=== PATIENT | female | born 1960 | race Caucasian/White ===

== ENCOUNTER → 2016-06-29 | Outpatient (CLI) | payer OTHER ==
[~2016-06-29] MED LIST: MELO7.5T5 PO; NXM/40 PO; SYN50 PO; TRAM-10 PO
[2016-06-29 09:56] LABS: BLOOD UREA NITROGEN 19 mg/dl (7-18); BUN/CREATININE RATIO 26.1 (10-20); CALCIUM 8.4 mg/dl (8.5-10.1); CARBON DIOXIDE 26 mmol/L (21-32); CHLORIDE 106 mmol/L (98-107); CREATININE 0.74 mg/dl (0.60-1.20); GLUCOSE 86 mg/dl (70-99); POTASSIUM 4.1 mmol/L (3.5-5.1); SODIUM 140 mmol/L (136-145)
== END | disposition home or self-care (01) ==
LOC: C.LAB 07:17
PROVIDERS: ATTEND Internal Medicine
DX: R63.5 Abnormal weight gain (principal); E03.9 Hypothyroidism, unspecified

== ENCOUNTER → 2017-03-02 | Outpatient (CLI) | payer OTHER ==
[2017-03-02 08:51] LABS: ALT/SGPT 20 U/L (12-78); BLOOD UREA NITROGEN 23 mg/dl (7-18); CALCIUM 9.1 mg/dl (8.5-10.1); CARBON DIOXIDE 25 mmol/L (21-32); CHLORIDE 104 mmol/L (98-107); CHOLESTEROL 181 mg/dl (0-200); CREATININE 0.73 mg/dl (0.60-1.20); GLUCOSE 95 mg/dl (70-99); POTASSIUM 4.1 mmol/L (3.5-5.1); SODIUM 138 mmol/L (136-145); TRIGLYCERIDES 81 mg/dl (0-150); VERY LOW DENSITY LIPOPROT CALC 16 mg/dl
[2017-03-02 08:53] LABS: ALB/GLOB RATIO 0.9 (0.9-2); ALKALINE PHOSPHATASE 73 U/L (45-117); AST/SGOT 18 U/L (15-37); CHOLESTEROL/HDL RATIO 3.1; HDL CHOLESTEROL 59 mg/dl; LDL CHOLESTEROL CALCULATED 106 mg/dl
== END | disposition home or self-care (01) ==
LOC: C.LAB 07:15
PROVIDERS: ATTEND Internal Medicine
DX: I10 Essential (primary) hypertension (principal); E03.9 Hypothyroidism, unspecified; Z11.59 Encounter for screening for other viral diseases; Z11.4 Encounter for screening for human immunodeficiency virus [HIV]

== ENCOUNTER → 2017-04-11 | Outpatient (CLI) | payer OTHER | END | disposition home or self-care (01) | LOC: C.PATHSPEC 17:24 | PROVIDERS: ATTEND Plastic Surgery | DX: L72.11 Pilar cyst (principal) ==

== ENCOUNTER → 2017-05-02 | Outpatient (CLI) | payer OTHER | END | disposition home or self-care (01) | LOC: C.PATHSPEC 17:32 | PROVIDERS: ATTEND Plastic Surgery | DX: L72.11 Pilar cyst (principal) ==

== ENCOUNTER → 2017-11-19 | Outpatient (CLI) | payer OTHER ==
--- NOTE | 2017-11-19 16:00 | ECHOCARDIOGRAM REPORT ---
*NOTICE TO RECEIVING CONSTITUTION PARTY AGENCY This information is strictly Confidential and protected under [place] law. [place] law prohibits you from making any further disclosure of this information unless further disclosure is expressly permitted by the written consent of the person to whom it pertains or is authorized by law. A general authorization for the release of medical or other information is not sufficient for this purpose. Hospital accepts no responsibility if the information is made available to any other person, INCLUDING THE PATIENT. Interpretation Summary * Name: JOSIAH KENDALL Study Date: 11/19/2017 12:56 PM BP: 160/82 mmHg * Patient Location: [facility] HR: 53 * : 1960 (M/d/yyyy) Gender: Female Height: 64 in * Age: 56 yrs Ethnicity: [place] Weight: 184 lb * Ordering Physician: Jayant Fonseca * Referring Physician: Jayant Fonseca * Performed By: Ela Gill RCS * * Reason For Study: Palpitations, VILLARREAL * BSA: 1.9 m2 * -- Conclusions -- * Normal LV chamber size and wall thickness. * Normal LV systolic function, EF 60-65%. * No segmental left ventricular wall motion abnormalities are noted. * Grade I diastolic dysfunction. * No significant valvular pathology. Procedure Details * A complete two-dimensional transthoracic echocardiogram was performed (2D, M-mode, Doppler and color flow Doppler). Left Ventricle * The left ventricle is normal in size. * There is normal left ventricular wall thickness. * Ejection Fraction = 55-60%. * Left ventricular systolic function is normal. * No segmental left ventricular wall motion abnormalities are noted. * The left ventricular wall motion is normal. Right Ventricle * The right ventricular cavity size is normal (basal dimension <4.2 cm in right ventricular apical 4-chamber view). * The right ventricular systolic function is normal as assessed by tricuspid annular plane systolic excursion (TAPSE) (normal >1.5 cm). Atria * The left atrial size is normal. * Right atrial size is normal. * No ASD detected; PFO is not assessed. Mitral Valve * The mitral valve is normal in structure and function. Tricuspid Valve * The tricuspid valve is normal in structure and function. Aortic Valve * The aortic valve is normal in structure and function. Pulmonic Valve * The pulmonary valve is not well seen, but the Doppler examination is normal without significant regurgitation or stenosis. Great Vessels * The aortic root and proximal ascending aorta are normal sized. Pericardium/Pleural * There is no pericardial effusion. Left Ventricular Diastolic Function * Grade I diastolic dysfunction, (abnormal relaxation pattern). MMode 2D Measurements and Calculations IVSd 1.0 cm IVSs 1.3 cm LVIDd 4.8 cm LVIDs 3.0 cm LVPWd 0.98 cm LVPWs 1.3 cm IVS/LVPW 1.0 FS 39.0 % EDV(Teich) 109.5 ml ESV(Teich) 33.6 ml EF(Teich) 69.3 % EDV(cubed) 113.2 ml ESV(cubed) 25.7 ml EF(cubed) 77.3 % % IVS thick 31.0 % % LVPW thick 28.6 % LV mass(C)d 169.6 grams LV mass(C)dI 89.9 grams/m\S\2 LV mass(C)s 118.9 grams LV mass(C)sI 63.0 grams/m\S\2 SV(Teich) 75.9 ml SI(Teich) 40.2 ml/m\S\2 SV(cubed) 87.5 ml SI(cubed) 46.3 ml/m\S\2 Ao root diam 3.3 cm Ao root area 8.6 cm\S\2 ACS 1.5 cm LA dimension 4.0 cm asc Aorta Diam 3.2 cm LA/Ao 1.2 EDV(MOD-sp4) 83.0 ml ESV(MOD-sp4) 37.0 ml EF(MOD-sp4) 55.4 % EDV(MOD-sp2) 113.0 ml ESV(MOD-sp2) 50.0 ml EF(MOD-sp2) 55.8 % SV(MOD-sp4) 46.0 ml SI(MOD-sp4) 24.4 ml/m\S\2 SV(MOD-sp2) 63.0 ml SI(MOD-sp2) 33.4 ml/m\S\2 Doppler Measurements and Calculations MV E max timi 76.7 cm/sec MV A max timi 100.0 cm/sec MV E/A 0.77 MV P1/2t max timi 96.4 cm/sec MV P1/2t 68.3 msec MVA(P1/2t) 3.2 cm\S\2 MV dec slope 413.6 cm/sec\S\2 MV dec time 0.25 sec Ao V2 max 164.8 cm/sec Ao max PG 10.9 mmHg Ao max PG (full) 5.5 mmHg LV V1 max PG 5.4 mmHg LV V1 max 115.8 cm/sec PA V2 max 93.2 cm/sec PA max PG 3.5 mmHg PI max timi 175.6 cm/sec PI max PG 12.3 mmHg PI dec slope 161.9 cm/sec\S\2 PI P1/2t 317.7 msec
== END | disposition home or self-care (01) ==
LOC: C.CPL 12:46
PROVIDERS: ATTEND Internal Medicine
DX: R00.2 Palpitations (principal); R06.09 Other forms of dyspnea